=== PATIENT | female | born 1980 | race Hispanic/Latino ===

== ENCOUNTER → 2019-03-27 | Outpatient (CLI) | payer BC | END | disposition home or self-care (01) | LOC: RAH 13:49 | PROVIDERS: ATTEND Physical Medicine & Rehabilitation | DX: M50.122 Cervical disc disorder at C5-C6 level with radiculopathy (principal); M48.02 Spinal stenosis, cervical region | CPT/HCPCS: 72141 ==

== ENCOUNTER → 2019-04-07 | Outpatient (CLI) | payer BC | END | disposition home or self-care (01) | LOC: RAH 09:05 | PROVIDERS: ATTEND Physical Medicine & Rehabilitation | DX: M41.84 Other forms of scoliosis, thoracic region (principal); M41.86 Other forms of scoliosis, lumbar region | CPT/HCPCS: 72082; 72110 ==